=== PATIENT | female | born 1980 | race Caucasian/White ===

== ENCOUNTER 2018-07-21 09:40 | Emergency (ER) | payer OTHER ==
[~2018-07-21] VITALS: Ht 165.1 cm; Wt 72.1 kg
[~2018-07-21 09:40] MED LIST: COLACE100 MG PO; FERROUS SULFAT325 M2 PO; MOTRIN800 MG PO; NOR10T PO; NORCO1 TA2 PO
[2018-07-21 09:47] VITALS: Ht 165.1 cm; Wt 72.1 kg
[2018-07-21 10:27] LABS: BASOPHIL % 0.3 % (0-2); PLATELET COUNT 264 x10^3mcL (130-400)
[2018-07-21 10:30] LABS: RED CELL DISTRIBUTION WIDTH 15.3 % (11.5-14.5)
[2018-07-21 10:41] LABS: CALCIUM 8.6 mg/dL (8.5-10.1); CARBON DIOXIDE 28.5 mmol/L (21-32); CHLORIDE SERUM 101 mmol/L (98-107); GFR1 > 60 mL/min; GLUCOSE SERUM 111 mg/dL (74-106); POTASSIUM SERUM 3.4 mmol/L (3.5-5.1); SODIUM SERUM 138 mmol/L (136-145)
[2018-07-21 10:45] LABS: ALBUMIN 3.7 g/dL (3.4-5.0); ALKALINE PHOSPHATASE 53 U/L (46-116); ALT/SGPT 24 U/L (14-59); AST/SGOT 31 U/L (15-37); BILIRUBIN TOTAL 1.4 mg/dL (0.20-1.00); LIPASE 147 IU/L (73-393); TOTAL PROTEIN, SERUM 7.9 g/dL (6.4-8.2)
[2018-07-21 16:34] VITALS: BP 103/52
== END 2018-07-21 16:34 | disposition home or self-care (01) ==
LOC: ED 09:40 → MU 13:43 → ED 13:43
PROVIDERS: Emergency Medicine
DX: K80.50 Calculus of bile duct without cholangitis or cholecystitis without obstruction (principal); Z88.6 Allergy status to analgesic agent
CPT/HCPCS: J2405; J2550; J3010; J7030; Q0092

== ENCOUNTER 2018-07-24 17:57 | Emergency (ER) | payer OTHER ==
[~2018-07-24] VITALS: Ht 165.1 cm; Wt 71.4 kg
[2018-07-24 18:28] VITALS: Ht 165.1 cm; Wt 71.4 kg
[2018-07-24 19:00] LABS: BASOPHIL % 0.6 % (0-2); PLATELET COUNT 245 x10^3mcL (130-400); RED CELL DISTRIBUTION WIDTH 14.9 % (11.5-14.5)
[2018-07-24 19:08] LABS: CALCIUM 8.6 mg/dL (8.5-10.1); CARBON DIOXIDE 30.8 mmol/L (21-32); CHLORIDE SERUM 99 mmol/L (98-107); CREATININE SERUM 0.9 mg/dL (0.6-1.0); GFR1 > 60 mL/min; GLUCOSE SERUM 120 mg/dL (74-106); POTASSIUM SERUM 3.1 mmol/L (3.5-5.1); SODIUM SERUM 136 mmol/L (136-145)
[2018-07-24 19:13] LABS: ALBUMIN 3.7 g/dL (3.4-5.0); ALKALINE PHOSPHATASE 59 U/L (46-116); ALT/SGPT 26 U/L (14-59); AST/SGOT 18 U/L (15-37); BILIRUBIN TOTAL 0.98 mg/dL (0.20-1.00); TOTAL PROTEIN, SERUM 7.5 g/dL (6.4-8.2)
[2018-07-24 23:46] VITALS: BP 125/70
== END 2018-07-24 23:46 | disposition left against medical advice (07) ==
LOC: ED 17:57
PROVIDERS: Emergency Medicine
DX: K56.3 Gallstone ileus (principal); E87.6 Hypokalemia; Z98.890 Other specified postprocedural states; Z88.6 Allergy status to analgesic agent
CPT/HCPCS: J2270; J2405; J7030